=== PATIENT | male | born 2000 ===

== ENCOUNTER 2024-11-24 21:44 | Emergency (ER) | payer OTHER ==
[~2024-11-24] VITALS: Ht 180.3 cm; Wt 66.7 kg
[2024-11-24 21:48] VITALS: PULSE 60; RESP 16; TEMP 97.9
[2024-11-24] MEDS ORDERED: CYCLOBENZAPRINE5 MG PO (22:55)
[2024-11-24 23:03] VITALS: BP 122/78; PULSE 60; RESP 18; TEMP 97.9; O2SAT 97
== END 2024-11-24 23:03 | disposition home or self-care (01) ==
LOC: FSED 21:54
DX: S39.012A Strain of muscle, fascia and tendon of lower back, initial encounter (principal); N43.3 Hydrocele, unspecified
CPT/HCPCS: 74176; 80307; 81003; 99283